=== PATIENT | female | born 1945 | race Caucasian/White ===

== ENCOUNTER → 2023-12-30 13:35 | Outpatient (REF) | payer OTHER, SELFPAY | LOC: PAVMRI 13:35 | PROVIDERS: ATTENDING PHYSICIAN Physician Assistant Surgical; FAMILY PHYSICIAN Family Medicine Geriatric Medicine | DX: M25.512 Pain in left shoulder (principal) | CPT/HCPCS: 73221 ==

== ENCOUNTER 2024-02-09 06:47 | Day surgery (SDC) | payer OTHER, SELFPAY ==
[2024-01-26 09:00] VITALS: BMI 27.5
[2024-01-26 10:31] LABS: Hematocrit 40.2 % (37.0-47.0); Hemoglobin 13.5 g/dL (12.0-16.0); Mean Corp Hgb Conc. 33.6 g/dL (33.0-37.0); Mean Corpuscular Hgb 29.7 pg (27.0-31.0); Mean Corpuscular Volume 88.5 fL (81.0-99.0); Mean Platelet Volume 9.4 fL (7.4-10.4); Platelet Count 218 10^3/uL (130-400); Red Blood Cell Count 4.54 10^6/uL (4.20-5.40); White Blood Cell Count 7.3 10^3/uL (4.8-10.8)
[2024-01-26 11:00] LABS: Blood Urea Nitrogen 18 mg/dl (7-17); Calcium 9.3 mg/dl (8.4-10.2); Carbon Dioxide 28 mmol/L (22-30); Chloride 105 mmol/L (98-107); Estimated Creatinine Clearance 53 ml/min; Glucose 105 mg/dl (70-99); Potassium 4.5 mmol/L (3.5-5.1); Sodium 139 mmol/L (135-145); eGFR > 60.00
[2024-02-09] VITALS (14 sets, daily range): BP systolic 133–180; BP diastolic 55–97; BMI 27.5
[2024-02-09] MEDS: NORMOSOL-R 1000 IV ×2 (10:56→17:39)
--- NOTE | 2024-02-09 12:50 | PTCARENOTE ---
Spoke to patient and . expressed frustration with his 's wait time. Explained to patient that the surgeon was held up in a prior case this morning, which caused the delay. The stated that he understood this but did not
appreciate not being constantly updated by staff. The patient was very understanding and did not seem bothered about the wait. Offered warm blankets and bathroom. Denied both at this time. Will continue to monitor.
[2024-02-09] MEDS: HEPARIN 5000 UNITS SC (13:54)
[2024-02-09] MEDS: Pyridium 200 MG PO (13:55)
--- NOTE | 2024-02-09 18:35 | PTCARENOTE ---
Pt arrived to 2S in bed. Full assessment completed. Vaginal packing in maintained, no drainage noted on peripad. Spann catheter clean and intact draining orange/ yellow urine. IVF infusing per order. Nasal cannula maintained. Oriented to room and
call gardiner, spouse at bedside.
[2024-02-09] MEDS: COLACE PO (20:44)
[2024-02-09] MEDS: TORADOL 15 MG IV (21:53)
[2024-02-09] MEDS: LOVENOX 40 MG SC (21:53)
[2024-02-09] MEDS: MELATONIN 3 MG PO (23:20)
[2024-02-10] MEDS: NORMOSOL-R 1000 IV ×2 (03:17→10:28)
[2024-02-10 03:20] VITALS: BP 171/93
[2024-02-10] MEDS: ZESTRIL 5 MG PO (03:56)
[2024-02-10] MEDS: TORADOL 15 MG IV ×2 (03:56→10:28)
--- NOTE | 2024-02-10 04:06 | PTCARENOTE ---
Pt's SBP 171, asymptomatic. Pt takes lisinopril daily at home, did not take it the morning her surgery (02/08). Contacted Harriet DIEHL, ordered to give 0800 dose now. Pt agreeable. no further needs at this time.
[2024-02-10 06:02] LABS: Hematocrit 37.1 % (37.0-47.0); Hemoglobin 12.3 g/dL (12.0-16.0); Mean Corp Hgb Conc. 33.2 g/dL (33.0-37.0); Mean Corpuscular Volume 87.5 fL (81.0-99.0); Mean Platelet Volume 9.2 fL (7.4-10.4); Platelet Count 212 10^3/uL (130-400); Red Blood Cell Count 4.24 10^6/uL (4.20-5.40); Red Cell Dist. Width 12.5 % (11.5-14.5); White Blood Cell Count 11.1 10^3/uL (4.8-10.8)
[2024-02-10 06:28] LABS: Blood Urea Nitrogen 16 mg/dl (7-17); Carbon Dioxide 28 mmol/L (22-30); Chloride 101 mmol/L (98-107); Estimated Creatinine Clearance 60 ml/min; Potassium 4.3 mmol/L (3.5-5.1); Sodium 137 mmol/L (135-145)
[2024-02-10 07:00] VITALS: BP 167/73
--- NOTE | 2024-02-10 07:08 | W.PN.GYN ---
Today's Communication / Plan
-
1. Wean O2
2. Voiding trial
3. D/c home
Physician Note
-
Assessment and Plan
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
1. Postoperative care
-Regular diet
-hep lock IV
-wean oxygen
-cbc: WNL
-bmp: WNL
-uop: adequate
-dvt ppx: lovenox, ambulation, scds
-voiding trial: pending
2. Dispo
-d/c home today
Subjective:
No acute complaints, pain well controlled, tolerating diet, minimal spotting, denies fevers/chills, nausea/vomiting, chest pain, or sob or leg pain.
Objective:
Intake and Output
02/08/24 02/09/24 02/10/24 02/11/24
06:59 06:59 06:59 06:59
Intake Total 2409 / 2410
Output Total 1849
Balance 560 / 560
Intake:
Oral fluids 510 / 510
IV fluids (Total) 1899 / 1899
Normosol 400 / 400
Output:
Urine, Spann 1849
Vital Signs
Temp Pulse Resp BP Pulse Ox
97.8 F 77 20 171/93 96
02/10/24 03:20 02/10/24 03:20 02/10/24 03:20 02/10/24 03:56 02/10/24 03:20
Lab Results
02/10/24 05:09
02/10/24 05:09
Exam:
Abdomen: soft, nontender, nondistended
: minimal spotting, packing removed
[2024-02-10] MEDS: COLACE 100 MG PO (08:43)
--- NOTE | 2024-02-10 10:00 | CM ---
CM following re: d/c planning
Chart reviewed
CM met with patient at bedside; IA completed
Pt states she and her spouse reside in a [facility] [place] [facility]
[employer] patient reports independence at baseline
Pt has no previous SNF hx, has had VN provided by [facility], & has the following DME: r/w, spc(s), crutches, & 2 bsc(s) for use PRN
Pt confirms prescription coverage and rx's are filled at [facility]
Pt new PCP-Aidee Alvarez and the patient has an appointment scheduled for 02/15; previous PCP was Janae Stearns
Pt has been cleared medically for d/c and has no needs
Pt states her spouse will transport her home at time of d/c
PLAN; d/c home no needs
[2024-02-10 11:00] VITALS: BP 136/64
== END 2024-02-10 13:44 | disposition home or self-care (01) ==
LOC: SDS 06:47
PROVIDERS: ATTENDING PHYSICIAN Obstetrics & Gynecology; FAMILY PHYSICIAN Family Medicine
DX: N99.3 Prolapse of vaginal vault after hysterectomy (principal); N95.2 Postmenopausal atrophic vaginitis; N36.2 Urethral caruncle; N39.3 Stress incontinence (female) (male)
CPT/HCPCS: 57120; 57250; 36415; 80048; 80051; 82565; 84520; 85027; 86850; 86900; 86901; 93005; J1580